=== PATIENT | female | born 1975 | race Caucasian/White ===

== ENCOUNTER → 2017-05-14 | Outpatient (CLI) | payer BC ==
[~2017-05-14] MED LIST: OXYC1TAB3 PO; POTA10CA28 PO; PRENTAB26 PO; Reglan PO; TAMS0.4C38 PO; Zofran ODT UT; juice plus PO
--- NOTE | 2017-05-14 17:34 | DIAGNOSTIC IMAGING REPORT ---
KUB HISTORY: N20.0 Nephrolithiasis COMPARISON: Renal ultrasound 02/02/2016. Abdomen and pelvis CT 07/28/2015. FINDINGS: The bowel gas pattern is unremarkable. There are no dilated loops of small bowel to suggest an obstruction. No renal calculi. No ureteral calculi. Calcifications in the deep pelvis likely represent phleboliths. These remain unchanged. Of note, the right renal shadow is mostly obscured by overlying bowel gas. Cholecystectomy. Punctate density overlying the left kidney is likely within the bowel. No pneumoperitoneum or pneumatosis. IMPRESSION: No definite renal or ureteral calculi by conventional radiographic technique. Electronically signed by: Denver Peng M.D. 05/14/2017 5:33 PM Dictated Date/Time: 05/14/2017 5:30 PM
== END | disposition home or self-care (01) ==
LOC: C.RAD 17:05
PROVIDERS: ATTEND Urology
DX: N20.0 Calculus of kidney (principal)

== ENCOUNTER → 2017-07-17 | Outpatient (CLI) | payer BC | END | disposition home or self-care (01) | LOC: C.PAPS 13:32 | PROVIDERS: ATTEND Obstetrics & Gynecology | DX: Z01.419 Encounter for gynecological examination (general) (routine) without abnormal findings (principal) ==